=== PATIENT | male | born 1990 | race Caucasian/White ===

== ENCOUNTER 2021-10-21 23:32 | Emergency (ER) | payer MEDICAID ==
[~2021-10-21] VITALS: Ht 172.7 cm; Wt 70.0 kg
[2021-10-21 23:42] VITALS: BP 152/97
[2021-10-22] MEDS ORDERED: TETANUS, DIPHTHERIA, PERTUSSIS VAC/PF 0.5ML (>10YR OLD) IM ONE
[2021-10-22] MEDS ORDERED: BACITRACIN ZINC OINT UDPKT TOP ONE
[2021-10-22] MEDS ORDERED: LIDOCAINE HCL/PF 1% 10 MG/ML 5ML VIAL INFIL ONE
[2021-10-22] MEDS: LIDOCAINE HCL 1% 20ML VIAL (Pyxis) INJ INFIL NR ×2 (01:19→01:21)
== END 2021-10-22 02:00 | disposition home or self-care (01) ==
LOC: ER 23:32
DX: S61.211A Laceration without foreign body of left index finger without damage to nail, initial encounter (principal); W26.8XXA Contact with other sharp object(s), not elsewhere classified, initial encounter; Y93.89 Activity, other specified; Y92.012 Bathroom of single-family (private) house as the place of occurrence of the external cause
CPT/HCPCS: 12001; 90715; 99282; J3490